=== PATIENT | female | born 1945 | race Caucasian/White ===

== ENCOUNTER 2021-09-26 11:39 | Outpatient (CLI) | payer MEDICARE | END 2021-09-26 11:40 | disposition home or self-care (01) | LOC: CSHRAD 11:39 | PROVIDERS: ATTEND Family Medicine | DX: R05.9 Cough, unspecified (principal) | CPT/HCPCS: 71046 ==

== ENCOUNTER 2023-02-17 09:25 | Outpatient (CLI) | payer MEDICARE | END 2023-02-17 09:26 | disposition home or self-care (01) | LOC: CSHRAD 09:25 | PROVIDERS: ATTEND Psychiatry & Neurology Neurology | DX: M48.02 Spinal stenosis, cervical region (principal); M47.812 Spondylosis without myelopathy or radiculopathy, cervical region | CPT/HCPCS: 72040 ==

== ENCOUNTER 2023-05-05 12:09 | Outpatient (CLI) | payer MEDICARE ==
[~2023-05-05 12:09] MED LIST: Magnevist 469MG/ML 20 ML VIAL ONE
== END 2023-05-05 12:10 | disposition home or self-care (01) ==
LOC: CSHMRI 12:09
PROVIDERS: ATTEND Psychiatry & Neurology Neurology
DX: M48.061 Spinal stenosis, lumbar region without neurogenic claudication (principal); M47.816 Spondylosis without myelopathy or radiculopathy, lumbar region
CPT/HCPCS: 72158

== ENCOUNTER 2024-03-13 09:04 | Outpatient (CLI) | payer MEDICARE | END 2024-03-13 09:05 | disposition home or self-care (01) | LOC: CSHCT 09:04 | PROVIDERS: ATTEND Internal Medicine | DX: R05.3 Chronic cough (principal); J98.4 Other disorders of lung; R91.8 Other nonspecific abnormal finding of lung field | CPT/HCPCS: 71250 ==

== ENCOUNTER 2024-04-13 09:15 | Outpatient (CLI) | payer MEDICARE | END 2024-04-13 09:16 | disposition home or self-care (01) | LOC: CSHCP 09:15 | PROVIDERS: ATTEND Internal Medicine | DX: R05.3 Chronic cough (principal); J44.9 Chronic obstructive pulmonary disease, unspecified | CPT/HCPCS: 94060; 94664; 94726; 94729; 94760 ==